=== PATIENT | female | born 1960 | race Caucasian/White ===

== ENCOUNTER 2017-02-11 09:19 | Emergency (ER) | payer MEDICAID, OTHER ==
[~2017-02-11] VITALS: Ht 177.8 cm; Wt 60.0 kg
[~2017-02-11 09:19] MED LIST: AUG875 PO; SODI44SP11 NASAL
[2017-02-11 09:35] VITALS: Ht 177.8 cm; Wt 60.0 kg
[2017-02-11] MEDS ORDERED: ONDANSETRON 4 MG INJ IV STA (09:35)
[2017-02-11] MEDS ORDERED: HYDROmorphONE 1 MG/ML SYG IV STA ×3 (09:35→12:34)
[2017-02-11] MEDS ORDERED: SOD CHLORIDE 0.9% 1,000 ML IV STA (09:35)
[2017-02-11 09:52] LABS: ADD SCAN DIFF NO
[2017-02-11 09:58] LABS: BASOPHIL # 0.1 10^3/ul (0.0-0.1); BASOPHILS % 0.9 % (0.0-2.0); EOSINOPHILS # 0.1 10^3/ul (0.0-0.5); EOSINOPHILS % 0.9 % (0.0-7.0); HEMATOCRIT 43.1 % (37.0-47.0); HEMOGLOBIN 14.5 g/dl (12.0-16.0); LYMPHOCYTES # 1.3 10^3/ul (0.8-2.9); LYMPHOCYTES % 19.5 % (15.0-51.0); MEAN CORPUSCULAR HEMOGLOBIN 29.8 pg (29.0-33.0); MEAN CORPUSCULAR HGB CONC 33.6 g/dl (32.0-37.0); MEAN CORPUSCULAR VOLUME 88.7 fl (82.0-101.0); MEAN PLATELET VOLUME 10.5 fl (7.4-10.4); MONOCYTE # 0.5 10^3/ul (0.3-0.9); MONOCYTES % 7.3 % (0.0-11.0); NEUTROPHIL # 4.5 10^3/ul (1.6-7.5); NEUTROPHILS % 70.9 % (39.0-77.0); PLATELET COUNT 227 10^3/UL (140-415); RED BLOOD COUNT 4.86 10^6/ul (4.20-5.40); RED CELL DISTRIBUTION WIDTH 13.2 % (11.5-14.5); WHITE BLOOD COUNT 6.4 10^3/ul (4.8-10.8)
[2017-02-11 10:13] LABS: ALANINE AMINOTRANSFERASE 37 IU/L (13-69); ALBUMIN 4.1 g/dl (3.3-4.9); ALBUMIN/GLOBULIN RATIO 1.64; ALKALINE PHOSPHATASE 126 IU/L (42-121); ANION GAP 11 (8-16); ASPARTATE AMINO TRANSFERASE 20 IU/L (15-46); BILIRUBIN,INDIRECT 0.6 mg/dl (0-1.1); BILIRUBIN,TOTAL 0.6 mg/dl (0.2-1.3); BLOOD UREA NITROGEN 8 mg/dl (7-20); CARBON DIOXIDE 26 mmol/L (21-31); CHLORIDE 95 mmol/L (97-110); CREATININE 0.66 mg/dl (0.44-1.00); GLUCOSE 319 mg/dl (70-220); POTASSIUM 4.1 mmol/L (3.5-5.1); SODIUM 128 mmol/L (135-144); TOTAL PROTEIN 6.6 g/dl (6.1-8.1)
--- NOTE | 2017-02-11 10:19 | RADRPT ---
PROCEDURE: CT abdomen and pelvis without contrast. CLINICAL INDICATION: Abdominal Pain TECHNIQUE: CT scan of the abdomen and pelvis without contrast was performed and is reconstructed a t 2.5 mm contiguous axial intervals from the dome of the diaphragm to the inferior pubic rami.. The patient was scanned without intravenous contrast. Sagittal and coronal reformatted images were obt ained from the axial source images. The calculated radiation dose measures 330 mGy centimeters. The CTDI measures 6 mGy. COMPARISON: None. FINDINGS: The lung bases are clear of any infiltrate or nodule. No effusion is seen. There is linear fibrosis or plate-like atelectasis at the left lung base. The liver is of normal size, contour and attenuation with no mass . Gallbladder has been removed an d there is presumed physiologic mild intra and mild to moderate extrahepatic bile duct dilatation. No stones are visualized.. No splenic, adrenal or pancreatic abnormalities present. Kidneys are of normal size and contour. No calculus or masses seen. There is mild fullness of the left intrarenal collecting system. Ureters are of normal course and caliber with no stone. No bladd er mass or stone is present. Uterus is been removed. No adnexal mass is identified. There is no aneurysm. No adenopathy is present. No bowel mass or obstruction is present. The appendix is normal. No phlegmon, ascites or pneumop eritoneum is visualized. There is L4-L5 degenerative disk narrowing. IMPRESSION: No evidence of urolithiasis, diverticulitis or appendicitis. Mild fullness left intrarenal collectin g system. Linear fibrosis versus plate-like atelectasis left lung base. Post cholecystectomy with presumed physiologic mild intra and extrahepatic bile duct dilatation. No stones visualized. L4-L5 degenerative disk disease. Post hysterectomy. .Sridhar Diego MD, MD Date Time Electronically viewed and signed by .Sridhar Diego MD, MD on 02/11/2017 10:19 .A/
[2017-02-11 10:23] LABS: ADD UMIC NO; URINE BILIRUBIN (Dip) NEGATIVE (NEGATIVE); URINE BLOOD (Dip) NEGATIVE (NEGATIVE); URINE COLOR LT. YELLOW (YELLOW); URINE GLUCOSE (Dip) >=1000 % (NEGATIVE); URINE KETONES (Dip) NEGATIVE (NEGATIVE); URINE LEUKOCYTE ESTERASE (Dip) NEGATIVE (NEGATIVE); URINE NITRITE (Dip) NEGATIVE (NEGATIVE); URINE TOTAL PROTEIN (Dip) NEGATIVE (NEGATIVE); URINE UROBILINOGEN (Dip) 0.2 E.U./dL (0.1-1.0)
--- NOTE | 2017-02-11 10:24 | ERD ---
ER Documentation Chief Complaint Date/Time DATE: 02/11/17 TIME: 10:23 Chief Complaint BIB RA FOR RB SINCE THIS AM. HX OF DIVERTICULITIS HPI 56-year-old woman here complaining of one episode of rectal bleeding while straining on the bathroom this morning. She states she does have a history of hemorrhoids. She also has chronic pain syndrome, opioid dependence, and metastatic cancer. She states she does have follow-up with her [facility] and [facility]. She denies fevers or chills, no dysuria, no vaginal bleeding, no chest pain or shortness of breath. ROS All systems reviewed and are negative except as per history of present illness. Medications Home Meds Active Scripts Ondansetron Hcl* (Zofran*) 4 Mg Tablet, 4 MG PO Q8H Y for NAUSEA AND/OR VOMITING , #15 TAB Prov:AMMY MEEKS MD 02/11/17 Sodium Chloride (Saline Nasal Oakley) 45 Ml [place], 1 SPRAY NASAL Q4 Y for congestion for 7 Days, BOTTLE Prov:KYREE TOLENTINO 10/01/15 Amoxicillin-Clavulanate K* (Augmentin*) 875 Mg Tab, 875 MG PO BID for 7 Days, TAB Prov:KYREE TOLENTINO 10/01/15 Reported Medications Insulin Aspart (Novolog FlexPen) 100 Unit/1 Ml Insuln.pen, 0-10 UNITS SC SLIDING SCALE AC, EA 02/11/17 Levothyroxine Sodium* (Levothyroxine Sodium*) 175 Mcg Tablet, 175 MG ORAL DAILY , #90 02/11/17 Estrogens Conjugated* (Premarin*) 0.625 Mg Tab, 0.625 MG ORAL DAILY, #30 02/11/17 Oxycodone Hcl (Roxicodone) 5 Mg Tablet, 5 MG ORAL Q6H Y for PAIN LEVEL 6-10, #70 02/11/17 Allergies Allergies: Coded Allergies: Sulfa (Sulfonamide Antibiotics) (Verified Allergy, Unknown, 02/11/17) PMhx/Soc Metastatic breast and thyroid cancer, chronic pain syndrome, opioid dependence, history of diverticulitis Hx Alcohol Use: No Hx Substance Use: No Hx Tobacco Use: Yes Smoking Status: Current every day smoker FmHx Family History: No diabetes Physical Exam Vitals Vital Signs Date Time Temp Pulse Resp B/P Pulse Ox O2 Delivery O2 Flow Rate FiO2 02/11/17 09:35 98.4 88 19 132/94 98 Physical Exam GENERAL: Well-developed, well-nourished, well-hydrated, in no apparent distress , looks nontoxic in appearance HEENT: Moist mucous membranes, pink conjunctiva, no cervical spine tenderness or step-off deformities, no goiter, no jaundice or icterus, extraocular movements intact without pain. No submandibular induration, and no pharyngeal erythema NEURO: Alert and oriented 3, cranial nerves II through XII intact bilaterally, pupils equal round reactive to light, no focal deficits or facial asymmetry, sensation intact distally Strength 5/5 in upper and lower extremities bilaterally CARDIAC: Regular rate and rhythm, no murmurs rubs or gallops LUNGS: Clear bilaterally no wheezing crackles or stridor ABDOMEN: Soft nontender, no guarding, no rigidity, no rebound, no psoas sign no obturator sign. Normoactive bowel sounds SKIN: Warm and dry to touch, no abrasions, contusions, or hematomas, no lacerations, no ecchymosis, no target lesions, and without ulcers EXTREMITIES: No clubbing cyanosis or edema, calves are bilaterally symmetrical, no Homans sign, no popliteal cord sign. Distal pulses equal and bilateral PSYCH: Normal affect without agitation or irritability Result Diagram: 02/11/17 0935 02/11/17 1140 Results 24 hrs Laboratory Tests Test 02/11/17 09:10 02/11/17 09:35 02/11/17 11:40 Urine Color LT. YELLOW Urine Clarity CLEAR Urine pH 6.0 Urine Specific Flora 1.010 Urine Ketones NEGATIVE Urine Nitrite NEGATIVE Urine Bilirubin NEGATIVE Urine Urobilinogen 0.2 E.U./dL Urine Leukocyte Esterase NEGATIVE Urine Hemoglobin NEGATIVE Urine Glucose >=1000% Urine Total Protein NEGATIVE White Blood Count 6.410^3/ul Red Blood Count 4.8610^6/ul Hemoglobin 14.5g/dl Hematocrit 43.1% Mean Corpuscular Volume 88.7fl Mean Corpuscular Hemoglobin 29.8pg Mean Corpuscular Hemoglobin Concent 33.6g/dl Red Cell Distribution Width 13.2% Platelet Count 99717^3/UL Mean Platelet Volume 10.5fl Neutrophils % 70.9% Lymphocytes % 19.5% Monocytes % 7.3% Eosinophils % 0.9% Basophils % 0.9% Nucleated Red Blood Cells % 0.0/100WBC Neutrophils # 4.510^3/ul Lymphocytes # 1.310^3/ul Monocytes # 0.510^3/ul Eosinophils # 0.110^3/ul Basophils # 0.110^3/ul Nucleated Red Blood Cells # 0.010^3/ul Prothrombin Time 12.5Sec Prothrombin Time Ratio 1.0 INR International Normalized Ratio 0.93 Sodium Level 128mmol/L 134mmol/L Potassium Level 4.1mmol/L 4.0mmol/L Chloride Level 95mmol/L 98mmol/L Carbon Dioxide Level 26mmol/L 26mmol/L Anion Gap 11 14 Blood Urea Nitrogen 8mg/dl 8mg/dl Creatinine 0.66mg/dl 0.65mg/dl Glucose Level 319mg/dl 305mg/dl Calcium Level 9.0mg/dl 8.5mg/dl Total Bilirubin 0.6mg/dl Direct Bilirubin 0.00mg/dl Indirect Bilirubin 0.6mg/dl Aspartate Amino Transf (AST/SGOT) 20IU/L Alanine Aminotransferase (ALT/SGPT) 37IU/L Alkaline Phosphatase 126IU/L Troponin I < 0.012ng/ml Total Protein 6.6g/dl Albumin 4.1g/dl Globulin 2.50g/dl Albumin/Globulin Ratio 1.64 Lipase 66U/L Current Medications Medications (Trade) Dose Ordered Sig/Sharad Route PRN Reason Start Time Stop Time Status Last Admin Dose Admin Sodium Chloride (NS) 1,000 ml @ 1,000 mls/hr Q1H STAT IV 02/11/17 09:35 02/11/17 10:34 DC 02/11/17 10:00 Hydromorphone HCl (Dilaudid) 1 mg ONCE STAT IV 02/11/17 09:35 02/11/17 09:37 DC 02/11/17 10:00 Ondansetron HCl 4 mg 4 mg ONCE STAT IV 02/11/17 09:35 02/11/17 09:37 DC 02/11/17 10:00 Sodium Chloride (NS) 1,000 ml @ 1,000 mls/hr Q1H ONCE IV 02/11/17 11:00 02/11/17 11:59 DC 02/11/17 11:05 Hydromorphone HCl (Dilaudid) 1 mg ONCE STAT IV 02/11/17 10:54 02/11/17 10:55 DC 02/11/17 11:04 Procedures/MDM IV line was established patient was placed on blood bank coordinator rhythm strip revealed a sinus rhythm at about 80 bpm with upright P and T waves. Patient was afebrile. EKG performed, read by me: 81 bpm, normal sinus rhythm, normal axis, no acute ST segment changes, narrow QRS complex, with good R-wave progression in precordial leads. I administered 1 L normal saline intravenously and hydromorphone 1 mg IV 2 for pain control as well as Zofran 4 mg IV with good effect. CBC was unremarkable, electrolytes revealed initial hyponatremia and dehydration , liver function tests were normal, troponin was negative. Urine analysis was negative for infection Patient was given a second liter normal saline intravenously and BMP was repeated and sodium improved to 134. CT scan of the abdomen and pelvis was performed, given the patient's symptoms. There was no acute inflammatory or infectious pathology noted, vascular structures were unremarkable. Please refer radiologist's dictation for full report. Patient's vital signs are normal, on rectal examination she had no abrasions, lacerations, active bleeding, or masses. She may have had a bleeding internal versus small external hemorrhoid but given her history I did recommend she follow-up with a colonoscopy. She feels much better and will follow up with her primary care physician, hematology oncology physician, pain specialist, and mangle press catcher. Differential diagnoses considered, included but not limited to acute coronary syndrome, pulmonary embolism, aortic dissection, abdominal aortic aneurysm, sepsis, stroke, meningitis, encephalitis, pneumonia, appendicitis, cholecystitis , bowel obstruction, pyelonephritis, nephrolithiasis, cystitis, as well as metabolic, hematologic, and electrolyte abnormalities. As well as abscess, cellulitis, fractures, and dislocations. Patient feels much better at this time, and vital signs are normal, symptoms have improved. I did give strict instructions to return to the ED if symptoms continue or worsen, patient will otherwise follow-up with primary care physician. Patient understood instructions and agreed to plan. Disclaimer: Inadvertent spelling or grammatical errors are likely due to EHR/ dictation software use and do not reflect on the overall quality of patient care. Departure Diagnosis: Primary Impression: Rectal hemorrhage Additional Impressions: Chronic pain syndrome Metastatic cancer Hemorrhoid Hemorrhoid type: second degree Qualified Code: K64.1 - Second degree hemorrhoids AMMY MEEKS MD February 11, 2017 10:24
[2017-02-11 10:26] LABS: TROPONIN-I < 0.012 ng/ml (0.00-0.12)
[2017-02-11 10:30] LABS: INR 0.93; PROTIME 12.5 Sec (12.2-14.2)
[2017-02-11] MEDS ORDERED: SOD CHLORIDE 0.9% 1,000 ML IV ONE (11:00)
[2017-02-11] MEDS ORDERED: ONDA4TAB8 PO (11:41)
[2017-02-11] MEDS ORDERED: PREM625 ORAL (11:47)
[2017-02-11] MEDS ORDERED: LEVO175T6 ORAL (11:47)
[2017-02-11] MEDS ORDERED: OXYC5TAB2 ORAL (11:47)
[2017-02-11] MEDS ORDERED: INSU100I22 SC (11:49)
[2017-02-11 12:20] LABS: CREATININE 0.65 mg/dl (0.44-1.00)
[2017-02-11 12:21] LABS: CALCIUM 8.5 mg/dl (8.4-10.2)
[2017-02-11 12:49] VITALS: BP 145/78; PULSE 75; RESP 17
== END 2017-02-11 12:51 | disposition home or self-care (01) ==
LOC: E/R 09:19
DX: K62.5 Hemorrhage of anus and rectum (principal); R40.2252 Coma scale, best verbal response, oriented, at arrival to emergency department; G89.4 Chronic pain syndrome; K64.1 Second degree hemorrhoids; C79.81 Secondary malignant neoplasm of breast; C79.89 Secondary malignant neoplasm of other specified sites; F17.210 Nicotine dependence, cigarettes, uncomplicated; R40.2142 Coma scale, eyes open, spontaneous, at arrival to emergency department; R40.2362 Coma scale, best motor response, obeys commands, at arrival to emergency department; Z79.4 Long term (current) use of insulin
CPT/HCPCS: 74176; 80048; 80053; 81003; 83690; 84484; 85025; 85610; J1170; J2405; J7030; 36415; 93005; 96374; 96375; 96376